=== PATIENT | female | born 1985 ===

== ENCOUNTER → 2017-12-09 | Outpatient (CLI) | payer OTHER | END | disposition home or self-care (01) | LOC: C.LABSPEC 15:17 | PROVIDERS: ATTEND Obstetrics & Gynecology | DX: Z34.01 Encounter for supervision of normal first pregnancy, first trimester (principal) ==

== ENCOUNTER → 2017-12-16 | Outpatient (CLI) | payer OTHER | END | disposition home or self-care (01) | LOC: C.PAPS 16:48 | PROVIDERS: ATTEND Obstetrics & Gynecology | DX: Z34.01 Encounter for supervision of normal first pregnancy, first trimester (principal) ==

== ENCOUNTER → 2017-12-16 | Outpatient (CLI) | payer OTHER | END | disposition home or self-care (01) | LOC: C.LABSPEC 16:13 | PROVIDERS: ATTEND Obstetrics & Gynecology | DX: Z34.01 Encounter for supervision of normal first pregnancy, first trimester (principal) ==

== ENCOUNTER 2018-07-29 11:10 | Inpatient (IN) ==
--- NOTE | 2018-07-29 13:15 | History & Physical Report ---
Date of Service July 29, 2018 Assessment & Plan (1) Term : -Fetus currently category 1 tracing. We will continue to monitor -Currently 1 cm dilated. Encourage pt to walk around, will cont monitor. Expect . -Vitals currently within normal limits. We will continue to monitor -A+, GBS-, Rubella Immune History of Present Illness Primary Care Provider: Dulce Henley PA-C DATE OF ADMISSION: 07/29/2018 BRIEF HISTORY: 33 y/o currently at 40 weeks 1 days gestational age with JON of 07/28/2018 by LMP consistent with first trimester ultrasound. At time of admission, the patient was having regular contractions, no vaginal bleeding or leakage of fluid, and reported normal movement. COURSE: The patient presented for care at approximately 8 weeks' gestational age. She has been normotensive throughout. She has had negative proteinuria, normal glucola testing x2, total weight gain for the is approximately 35 pounds. LABS: Blood type A positive, antibody screen negative, RPR nonreactive, rubella immune, hep B surface antigen negative, HIV negative, chlamydia negative, gonorrhea negative. Anatomy scan normal and complete. Hep group B strep negative. GBS negative. GYNECOLOGIC HISTORY: LMP 10/21/2017, age of menarche 13. The patient reports regular 28 day cycles with normal duration and quantity of menses. Denies any history of sexually transmitted infections or abnormal Paps. PAST MEDICAL HISTORY: Significant for Depression currently on Lexapro, otherwise unremarkable. PAST SURGICAL HISTORY: None. MEDICATIONS: 1. Lexapro 2. vitamin. 3. Vit. D ALLERGIES: NKDA SOCIAL HISTORY: The patient denies tobacco, alcohol or illicit drug use. FAMILY HISTORY: Breast Ca on both sides of family. Paternal Aunt- Depression, Bipolar. Paternal Cousin- Down Syndrome. Allergies Allergy/AdvReac Type Severity Reaction Status Date / Time No Known Allergies Allergy Verified 07/29/18 12:58 Home Medications Home Medications Medication Instructions Recorded Confirmed Type cholecalciferol (vitamin D3) 2,000 unit PO DAILY 06/01/18 07/29/18 History [Vitamin D3] 21-iron fu-folic acid 1 tab PO DAILY 06/01/18 07/29/18 History [ Complete] escitalopram oxalate [Lexapro] 20 mg PO DAILY 03/22/19 03/22/19 History Patient History Medical History Depression Surgical History No pertinent past surgical history Social History Preferred Language: Bulgarian marital status: Feels Safe at Home: Yes Safety Concerns: Feels Safe At This Time Smoking Status: Never smoker Hx Alcohol Use: Yes (1/2 glass of wine once a week) Hx Substance Use: No Review of Systems All systems reviewed & are unremarkable except as noted in HPI & below Physical Exam Vital Signs (Past 24 Hours): Last Vital Signs Temp 36.4 C L 07/29/18 11:31 Pulse 81 07/29/18 11:31 Resp 20 07/29/18 11:31 BP 111/76 07/29/18 11:31 Constitutional: WD/WN, vitals as above Eyes: Conjunctiva Normal ENMT: external ear and nose normal, oropharynx normal Respiratory: normal respiratory effort, lungs clear to auscultation Cardiovascular: RRR, no murmur, no edema Gastrointestinal (Abdomen): Soft, nontender, gravid FH-term Contractions palpated Vertex Skin: no rashes, warm and dry Psychiatric: A+Ox3, euthymic affect Genitourinary: 1 cm dilated, 75% effaced, -2 station (per Dr. Cristobal) Code Status & VTE Plan Code Status FULL Monitoring External Monitor Baseline 140 bpm, moderate variability, accelerations present, decelerations absent Tocodynamometer Contractions every ~3 min, lasting ~1 min Supervising Physician Co-Signing Physician Notes Resident Physician Supervision Note: I interviewed and examined the patient. Discussed with Dr. Lopez and agree with findings and plan as documented in the note. Any exceptions or clarifications are listed here: primip labor check, fetus category one. christiane q2-3min, will walk and recheck. Documented By: Jessica Cristobal MD, FACOG Resident Activity Tracking Resident Involvement: Resident Care Provided Care Provided: OB Delivery
[2018-07-29] MEDS ORDERED: OXYTOCIN 30 UNITS/500 ML BAG IV PRN (14:12)
[2018-07-29] MEDS ORDERED: LACTATED RINGER'S 1,000 ML IV PRN ×2 (14:12→16:55)
[2018-07-29 14:45] LABS: Hemoglobin 13.2 g/dL (12.0-16.0); Mean Corpuscular Volume 92.2 fL (80-100); Mean Platelet Volume 12.8 fL (7.4-10.4); Nucleated RBC # (auto) 0.02 K/uL (0-0); Nucleated RBC % (auto) 0.1 %; Platelet Count 145 K/uL (130-400); RDW Coefficient of Variation 14.9 % (11.5-14.5); RDW Standard Deviation 50.3 fL (36.4-46.3); Red Blood Count 4.23 M/uL (4.2-5.4); White Blood Count 15.63 K/uL (4.8-10.8)
[2018-07-29 14:56] LABS: Mean Corpuscular Hgb Conc 33.8 g/dL (32-36)
[2018-07-29] MEDS ORDERED: BUPIVACAINE 0.25% 30 ML VIAL ONE ×2 (15:56→20:35)
[2018-07-29] MEDS ORDERED: ePHEDrine sulfate 50 MG/ML AMP ONE (15:56)
[2018-07-29] MEDS ORDERED: fentaNYL 2MCG/ML ROPIV 1.25MG/ML 100 ML BAG EPI ONE (15:57)
[2018-07-29] MEDS ORDERED: fentaNYL citrate 100 MCG/2 ML VIAL ONE ×2 (15:57→20:36)
[2018-07-29] MEDS: LACTATED RINGER'S 1,000 ML IV SCH ×3 (16:03→21:31)
--- NOTE | 2018-07-29 16:52 | Anesthesiology Consultation ---
Date of Service July 29, 2018 Assessment & Plan (1) Encounter for pre-operative examination: Chart Review Chart Review: Acceptable Risk for Surgery and Patient NOT seen in Pre Admission Testing Consults Requested none ASA ASA2 Proposed Anesthesia Anesthesia Type: Labor Epidural Risk / Benefits Reviewed With: PT / POA / Parent / Guardian, Accepts Plan and Informed Consent Obtained History Height/Weight Height: 5 ft 6 in Weight: 89.358 kg Allergies Allergy/AdvReac Type Severity Reaction Status Date / Time No Known Allergies Allergy Verified 07/29/18 12:58 Medications Home Medications Medication Instructions Recorded Confirmed Last Taken cholecalciferol (vitamin D3) 2,000 unit PO DAILY 06/01/18 07/29/18 1 Day Ago [Vitamin D3] ~07/28/18 21-iron fu-folic acid 1 tab PO DAILY 06/01/18 07/29/18 1 Day Ago [ Complete] ~07/28/18 escitalopram oxalate [Lexapro] 20 mg PO DAILY 07/29/18 07/29/18 1 Day Ago ~07/28/18 Active Medications Generic Name Dose Route Start Last Admin Trade Name Freq PRN Reason Stop Dose Admin Lactated Ringer's 1,000 mls @ 999 mls/hr 07/29/18 14:12 07/29/18 14:51 Lr IV 08/28/18 14:11 999 mls/hr .Q1H1M PRN Administration (Pre-Anesthesia) Lactated Ringer's 1,000 mls @ 125 mls/hr 07/29/18 14:15 07/29/18 16:03 Lr IV 07/31/18 14:14 125 mls/hr .Q8H MANI Administration Past Medical History Medical History Depression Past Surgical History Surgical History No pertinent past surgical history Social History Smoking Status: Never smoker Hx Alcohol Use: Yes (1/2 glass of wine once a week) Alcohol type: wine alcohol intake frequency: a few times a month Hx Substance Use: No Physical Exam Vital Signs Last Vital Signs Temp 36.9 C 07/29/18 15:51 Pulse 95 H 07/29/18 16:47 Resp 20 07/29/18 15:51 BP 102/59 L 07/29/18 16:47 Pulse Ox 94 07/29/18 16:47 Testing Laboratory Results 07/29/18 14:34
[2018-07-29] MEDS ORDERED: NALBUPHINE HCL INJ 10 MG/ML AMP IV PRN (16:55)
[2018-07-29] MEDS ORDERED: DiphenhydrAMINE HCL 50 MG/ML VIAL IV PRN (16:55)
[2018-07-29] MEDS ORDERED: NALOXONE HCL 0.4 MG/1 ML VIAL/CARP IV PRN (16:55)
[2018-07-29] MEDS ORDERED: ePHEDrine sulfate 50 MG/ML AMP IV PRN (16:55)
[2018-07-29] MEDS ORDERED: ONDANSETRON INJ 2 MG/ML 2 ML VIAL IV PRN (16:55)
[2018-07-29] MEDS ORDERED: NALOXONE HCL 1 MG in SODIUM CHLORIDE 0.9% 1000ML 1,000 ML IV PRN (16:55)
--- NOTE | 2018-07-29 17:07 | Labor Progress Brief Note ---
Date of Service July 29, 2018 Subjective Patient more comfortable after epidural. Assessment & Plan (1) Term : Plan expectant management after epidural. pitocin if indicated. fetus category one. anticipate . Physical Exam Vital Signs (Past 24 Hours): Last Vital Signs Temp 36.9 C 07/29/18 15:51 Pulse 81 07/29/18 17:01 Resp 20 07/29/18 15:51 BP 93/53 L 07/29/18 16:50 Pulse Ox 100 07/29/18 17:01 Constitutional: WD/WN, vitals as above Genitourinary: cx--/-2 arom--thin mec toco--q2-4min efm--130s wtih mod variability, accels to 160s, no decels
--- NOTE | 2018-07-29 19:33 | Labor Progress Brief Note ---
Date of Service July 29, 2018 Subjective Some pressure Assessment & Plan (1) Term : fetus category one. making good progress. continue current management. anticipate . Physical Exam Vital Signs (Past 24 Hours): Last Vital Signs Temp 37.0 C 07/29/18 19:02 Pulse 78 07/29/18 19:26 Resp 18 07/29/18 19:02 BP 114/71 07/29/18 19:22 Pulse Ox 100 07/29/18 19:26 Constitutional: WD/WN, vitals as above Genitourinary: cx--5/100/-2 toco--q1-3min efm--135 with mod variability, accels to 160s, no decels
--- NOTE | 2018-07-29 21:38 | Labor Progress Brief Note ---
Date of Service July 29, 2018 Subjective rebolused and comfortable Assessment & Plan (1) Term : Making good progress. Fetus category 2 but overall reassuring. Continue current management. Anticipate . Physical Exam Vital Signs (Past 24 Hours): Last Vital Signs Temp 37.1 C 07/29/18 20:51 Pulse 74 07/29/18 21:31 Resp 18 07/29/18 21:01 BP 107/61 07/29/18 21:22 Pulse Ox 100 07/29/18 21:31 Constitutional: WD/WN, vitals as above Genitourinary: cx--8-9/100/-2 to -1 toco--q1-3min efm--150s with min to mod variability, small accels, no decels, +scalp stim with exam
[2018-07-29] MEDS: fentaNYL 2MCG/ML ROPIV 1.25MG/ML 100 ML BAG EPI PRN (23:03)
--- NOTE | 2018-07-29 23:17 | Labor Progress Brief Note ---
Date of Service July 29, 2018 Subjective getting uncomfortable again Assessment & Plan (1) Term : Begin second stage. Fetus category 2. Anticipate at this time. Physical Exam 2 Vital Signs (Past 24 Hours): Last Vital Signs Temp 36.9 C 07/29/18 21:56 Pulse 79 07/29/18 23:11 Resp 18 07/29/18 22:31 BP 113/56 L 07/29/18 23:07 Pulse Ox 99 07/29/18 23:11 Constitutional: WD/WN, vitals as above Genitourinary: cx--c/c/0 toco--q2-3min efm--140 with mod variability, accels to 170s, no decels
--- NOTE | 2018-07-30 02:49 | Labor Progress Brief Note ---
Date of Service July 30, 2018 Subjective Pushing, not the greatest effort Assessment & Plan (1) Term : NOt pushing well. Many attempts at coaching. I don't really feel she's moved it much in the hour she has jeff pushing. Will trial knee /chest again in a bit as nursing felt she pushed a little better in that position. fetus very reassuring. I feel like she probably has the room but is just not pushing well. head not on pelvic floor at this point. Physical Exam Vital Signs (Past 24 Hours): Last Vital Signs Temp 37.2 C 07/30/18 02:13 Pulse 106 H 07/30/18 02:43 Resp 18 07/30/18 02:31 BP 136/79 07/30/18 02:38 Pulse Ox 100 07/30/18 02:43 Constitutional: WD/WN, vitals as above Genitourinary: cx--c/c/0 toco--q2min efm--150s wtih mod variability, accels present, variables with contractions
[2018-07-30] MEDS ORDERED: fentaNYL citrate 100 MCG/2 ML VIAL ONE ×3 (03:05→09:18)
--- NOTE | 2018-07-30 03:18 | Labor Progress Brief Note ---
Date of Service July 30, 2018 Subjective getting more painful Assessment & Plan (1) Term : Plan to bolus epidural and try to get her really comfortable. I got her into knee chest and made no difference in her pushing. Hopefully after getting more/really comfortable, may push better?? Will give it a try. Has been actively pushing for about 1.5 hours. No change in station after laboring down for an hour. Baby still looking very good and no maternal temp/ s/s of chorio. I have told the patient that she really has to push harder, as I can't really feel any downward pressure on the vertex while she is pushing. I feel like there is room for this baby posteriorly to come around the symphysis. But I did tell her that the only option is to push it out or for me to section her. She was not really excited about the idea of c/s. Will get comfortable, get a little rest , and try again. Physical Exam Vital Signs (Past 24 Hours): Last Vital Signs Temp 37.2 C 07/30/18 02:13 Pulse 95 H 07/30/18 03:08 Resp 18 07/30/18 02:31 BP 129/77 07/30/18 03:08 Pulse Ox 99 07/30/18 02:53 Constitutional: WD/WN, vitals as above Genitourinary: c/c/0 toco--q2 efm--150s with mod vairabilit, accels to 170s, variables with some contractions.
[2018-07-30] MEDS ORDERED: LACTATED RINGER'S 1,000 ML IV PRN (03:51)
[2018-07-30] MEDS ORDERED: OXYTOCIN 30 UNITS/500 ML BAG IV PRN (03:51)
[2018-07-30] MEDS ORDERED: BUPIVACAINE 0.25% 30 ML VIAL ONE (04:17)
[2018-07-30] MEDS ORDERED: ePHEDrine sulfate 50 MG/ML AMP ONE (04:18)
[2018-07-30] MEDS ORDERED: fentaNYL 2MCG/ML ROPIV 1.25MG/ML 100 ML BAG EPI ONE (04:18)
--- NOTE | 2018-07-30 04:22 | Communication Note ---
Date of Service: July 30, 2018 Patient did not get any relief from her bolus like she did previously. anesthesia back up to likely replace epidural. Ctx spaced so pitocin added. Discussion about how that's about all I have in my power to do and she has to push this baby out. Fetus category one. Once stable from replaced epidural, will begin pushing again.
[2018-07-30] MEDS: fentaNYL 2MCG/ML ROPIV 1.25MG/ML 100 ML BAG EPI PRN (04:51)
[2018-07-30] MEDS: LACTATED RINGER'S 1,000 ML IV SCH (05:32)
[2018-07-30] MEDS ORDERED: Nursing to Pharmacy Communication ONE (06:27)
[2018-07-30] MEDS ORDERED: CITRIC ACID/SODIUM CITRATE 15 ML UDC ONE (08:41)
--- NOTE | 2018-07-30 08:48 | Obstetrical Progress Note ---
Date of Service July 30, 2018 Call sign over at 830am Prolonged full dilatation with pushing. Patient is exhausted and in pain. +1 station with significant caput. Minimal movement with patient pushing Agree with Dr. Cristobal that C/S recommended. Discussed increased risks of infection/complications with prolonged labor/full diltation with subsequent C/S Physical Exam Vital Signs (Past 24 Hours): Last Vital Signs Temp 36.7 C 07/30/18 06:59 Pulse 102 H 07/30/18 08:43 Resp 22 07/30/18 06:59 BP 148/89 H 07/30/18 08:40 Pulse Ox 99 07/30/18 08:43
--- NOTE | 2018-07-30 08:51 | Communication Note ---
Date of Service: July 30, 2018 Once patient was comfortable she really pushed well with much better effort. She did move the baby down but unfortunately over the last hour of her current three hour push, she has not really pushed the baby down any farther. There is significant caput that we can see with separation of the labia but true vertex is not underneath the symphysis. However, I do not think that the station is >+1. She is now incredibly uncomfortable and unable to push. I am uncomfortable with placing a vacuum for several reasons--large caput, if successful-- getting a shoulder dystocia because of a narrow pelvis and a high risk of failure resulting in a stat c/s. I had been having this conversation with the patient and her over the last hour seeing no significant increase in station. I had Dr. Mckee examine the patient and he agrees with my assessment and evaluation. They are agreeable with proceeding. dr. Mckee will perform the procedure and I will assist.
[2018-07-30] MEDS ORDERED: CEFAZOLIN 2000MG 2,000 MG/15 ML SYR IV SCH (09:00)
[2018-07-30] MEDS ORDERED: CITRIC ACID/SODIUM CITRATE 15 ML UDC PO SCH (09:00)
[2018-07-30] MEDS ORDERED: LACTATED RINGER'S 1,000 ML IV SCH ×3 (09:00→10:35)
[2018-07-30] MEDS ORDERED: OXYTOCIN 10 UNITS/ML VIAL ONE (09:38)
[2018-07-30] MEDS ORDERED: SUCCINYLCHOLINE CHLORIDE 20 MG/ML 10 ML VIAL ONE (09:38)
[2018-07-30] MEDS ORDERED: ONDANSETRON INJ 2 MG/ML 2 ML VIAL ONE (09:38)
[2018-07-30] MEDS ORDERED: PHENYLEPHRINE 100MCG/ML 5ML SYR ONE (09:38)
[2018-07-30] MEDS ORDERED: PROPOFOL IV EMULSION 10 MG/ML 20 ML VIAL IV ONE (09:38)
--- NOTE | 2018-07-30 09:59 | Operative Report ---
Post Operative Report Pre & Post Diagnosis Operation Date: 07/30/18 08:55 Pre-Op Diagnosis: intrauterine at 40.3 failure to descend Procedure Operation Date: 07/30/18 08:55 Actual Procedures p Section in LD - Jair Mckee MD, FACOG Surgeon Jair Mckee MD, FACOG Service Transformer Repair Supervisor Dr. Cristobal Estimated Blood Loss 800 Findings Consistent with Post-Op Diagnosis Specimens Cord gases and blood Description of Procedure Patient was given a general anesthetic had a Arredondo catheter in already. She was in supine position with a leftward tilt. IV antibiotics have been given preoperatively timeout performed Pfannenstiel incision made with scalpel dissecting down through subcutaneous fat through the fascia in the midline curved Silva was used to dissect the fascia laterally and then away from the rectus muscle superiorly and inferiorly rectus muscles were split peritoneal cavity entered in the superior location. Opening enlarged to allow exposure Bladder retractor placed Metzenbaums used to dissect away the bladder flap bladder retractor repositioned scalpel used to make a low transverse incision on the uterus and she was done bluntly with a hemostat opening enlarged with the certified forklift operator's fingers. Thin meconium noticed baby was in vertex position using my right hand was able to elevate the head out of the pelvis and then pressure on the abdomen resulted in delivery of the fetus without excessive force mouth and then nares suctioned gentle traction and baby was delivered handed to pediatrics Placenta removed uterus exteriorized IV Pitocin given. We ensured all placenta was removed tone was somewhat floppy so we did give some Hemabate injection into the uterus Uterus closed in 2 layers first layer running Monocryl lock second layer Monocryl nonlocked hemostasis excellent at this stage there were no extensions Irrigation of the cul-de-sac and bladder flap regions was performed uterus placed back in the peritoneal cavity hemostasis was excellent Fascia closed with 0 Vicryl simultaneous fat irrigated and closed with 3-0 Vicryl 4-0 subcuticular Monocryl closure Steri-Strips applied sponge and instrument counts were correct should be noted the patient's urine was unchanged during the position it was minimally blood-tinged prior to the procedure and after I attest to the content of the Intraoperative Record and any orders documented therein. Any exceptions are noted below.
--- NOTE | 2018-07-30 10:15 | Anesthesia Procedure Note ---
Date of Service July 30, 2018 Anesthesia Post Epidural Note Vital Signs Vital Signs: Temp Pulse Resp BP Pulse Ox 36.7 C 99 H 22 100/51 L 100 07/30/18 06:59 07/30/18 10:13 07/30/18 06:59 07/30/18 10:08 07/30/18 10:13 Pain Intensity Abdomen: Pain Intensity: 8 Notes Mental Status: alert / awake / arousable Patient Amnestic to Procedure: Yes Nausea / Vomiting: adequately controlled Pain: adequately controlled Airway Patency, RR, SpO2: stable & adequate BP & HR: stable & adequate Hydration State: stable & adequate Neuraxial Anesthesia: was administered and sensory block is resolving Anesthetic Complications: no major complications apparent and Pt Satisfied with anesthetic care Epidural: Removed without complications and With tip intact
[2018-07-30] MEDS ORDERED: ACETAMINOPHEN 1000 MG/100 ML IV IV ONE (10:16)
[2018-07-30] MEDS ORDERED: ATROPINE SULFATE 0.1 MG/ML 10ML SYR IV PRN (10:16)
[2018-07-30] MEDS ORDERED: PROMETHAZINE HCL 12.5 MG in SODIUM CHLORIDE 0.9% 50 ML IV PRN (10:16)
[2018-07-30] MEDS ORDERED: KETOROLAC 30 MG/ML VIAL IV PRN ×2 (10:16→10:35)
[2018-07-30] MEDS ORDERED: ACETAMINOPHEN 1,000 MG/100 ML VIAL IV ONE (10:16)
[2018-07-30] MEDS ORDERED: fentaNYL citrate 100 MCG/2 ML VIAL IV PRN (10:16)
[2018-07-30] MEDS ORDERED: ePHEDrine sulfate 50 MG/ML AMP IV PRN (10:16)
[2018-07-30] MEDS ORDERED: HYDROmorphone INJ 1 MG/ML SYRINGE IV PRN (10:16)
[2018-07-30] MEDS ORDERED: ONDANSETRON INJ 2 MG/ML 2 ML VIAL IV PRN (10:16)
--- NOTE | 2018-07-30 10:16 | Anesthesiology Progress Note ---
Date of Service July 30, 2018 Anesthesia Post Procedure Vital Signs Vital Signs: Temp Pulse Resp BP Pulse Ox 07/30/18 10:13 99 H 100 07/30/18 10:08 105 H 100/51 L 100 07/30/18 09:09 102 H 100 07/30/18 09:07 105 H 129/55 L 07/30/18 09:04 106 H 141/67 H 07/30/18 09:03 107 H 99 07/30/18 08:58 102 H 97 07/30/18 08:55 99 H 153/79 H 07/30/18 08:53 103 H 99 07/30/18 08:48 96 H 100 07/30/18 08:43 102 H 99 07/30/18 08:40 110 H 148/89 H 07/30/18 08:38 98 H 98 07/30/18 08:33 106 H 99 07/30/18 08:28 101 H 99 07/30/18 08:23 126 H 99 07/30/18 08:18 123 H 100 07/30/18 08:13 97 H 99 07/30/18 08:10 95 H 141/68 H 07/30/18 08:08 104 H 98 07/30/18 08:03 102 H 97 07/30/18 07:58 113 H 97 07/30/18 07:55 117 H 99/55 L 07/30/18 07:53 95 H 97 07/30/18 07:48 89 95 07/30/18 07:43 109 H 96 07/30/18 07:40 93 H 122/58 L 07/30/18 07:38 129 H 97 07/30/18 07:34 101 H 164/91 H 07/30/18 07:33 96 H 96 07/30/18 07:28 90 97 07/30/18 07:25 111 H 170/121 H 07/30/18 07:23 106 H 97 07/30/18 07:18 91 H 97 07/30/18 07:13 100 H 94 07/30/18 07:11 96 H 127/58 L 07/30/18 07:08 138 H 96 07/30/18 07:03 96 H 96 07/30/18 07:02 99 H 86 L 07/30/18 06:59 36.7 C 22 07/30/18 06:58 94 H 96 07/30/18 06:56 95 H 82 L 07/30/18 06:55 87 114/57 L 07/30/18 06:53 101 H 97 07/30/18 06:50 95 H 83 L 07/30/18 06:48 84 94 07/30/18 06:43 89 97 07/30/18 06:42 97 H 79 L 07/30/18 06:39 86 107/59 L 07/30/18 06:38 82 96 07/30/18 06:35 106 H 89 L 07/30/18 06:33 85 97 07/30/18 06:28 106 H 96 07/30/18 06:25 88 113/60 07/30/18 06:23 84 95 07/30/18 06:18 112 H 87 L 07/30/18 06:13 123 H 98 07/30/18 06:10 93 H 111/61 07/30/18 06:08 101 H 79 L 07/30/18 06:03 107 H 96 07/30/18 06:02 104 H 82 L 07/30/18 05:58 85 97 07/30/18 05:53 84 96 07/30/18 05:52 90 115/56 L 07/30/18 05:49 36.7 C 07/30/18 05:48 114 H 86 L 07/30/18 05:45 99 H 83 L 07/30/18 05:43 91 H 99 07/30/18 05:42 115 H 153/99 H 07/30/18 05:38 85 96 07/30/18 05:33 85 97 07/30/18 05:31 18 07/30/18 05:28 93 H 100 07/30/18 05:25 93 H 112/59 L 07/30/18 05:23 125 H 98 07/30/18 05:18 107 H 98 07/30/18 05:15 18 07/30/18 05:13 84 96 07/30/18 05:08 92 H 96 07/30/18 05:07 88 115/61 07/30/18 05:03 92 H 96 07/30/18 05:02 93 H 120/64 07/30/18 05:00 18 07/30/18 04:59 93 H 108/60 07/30/18 04:58 97 H 95 07/30/18 04:55 18 07/30/18 04:54 37.2 C 18 07/30/18 04:53 99 H 107/56 L 97 07/30/18 04:51 95 H 117/66 07/30/18 04:49 104 H 118/58 L 07/30/18 04:48 104 H 96 07/30/18 04:46 18 07/30/18 04:43 93 H 99 07/30/18 04:38 107 H 98 07/30/18 04:36 108 H 115/63 07/30/18 04:33 107 H 99 07/30/18 04:28 116 H 100 07/30/18 04:23 111 H 97 07/30/18 04:18 87 97 07/30/18 04:13 88 98 07/30/18 04:08 95 H 98 07/30/18 04:06 93 H 124/62 07/30/18 04:03 102 H 97 07/30/18 03:58 88 95 07/30/18 03:53 84 96 07/30/18 03:51 78 110/54 L 07/30/18 03:48 82 94 07/30/18 03:43 84 95 07/30/18 03:38 91 H 98 07/30/18 03:37 85 114/60 07/30/18 03:33 87 95 07/30/18 03:28 92 H 95 07/30/18 03:23 95 H 96 07/30/18 03:21 107 H 120/69 07/30/18 03:18 99 H 98 07/30/18 03:13 92 H 98 07/30/18 03:08 99 H 129/77 97 07/30/18 02:53 114 H 99 07/30/18 02:52 100 H 130/60 07/30/18 02:48 109 H 86 L 07/30/18 02:43 106 H 100 07/30/18 02:39 108 H 82 L 07/30/18 02:38 95 H 136/79 98 07/30/18 02:33 94 H 100 07/30/18 02:31 18 07/30/18 02:28 89 99 07/30/18 02:23 90 121/76 100 07/30/18 02:18 97 H 100 07/30/18 02:13 37.2 C 93 H 100 07/30/18 02:08 90 99 07/30/18 02:07 95 H 146/64 H 07/30/18 02:03 92 H 100 07/30/18 02:01 18 07/30/18 01:58 91 H 99 07/30/18 01:51 101 H 100 07/30/18 01:47 92 H 86 L 07/30/18 01:46 98 H 100 07/30/18 01:42 95 H 81 L 07/30/18 01:41 91 H 94 07/30/18 01:36 100 H 99 07/30/18 01:31 99 H 18 100 07/30/18 01:26 87 100 07/30/18 01:21 85 98 07/30/18 01:16 91 H 100 07/30/18 01:14 87 83 L 07/30/18 01:11 98 H 100 07/30/18 01:09 89 87 L 07/30/18 01:07 88 125/57 L 07/30/18 01:06 88 100 07/30/18 01:01 103 H 18 99 07/30/18 00:56 89 98 07/30/18 00:52 90 117/58 L 07/30/18 00:51 88 98 07/30/18 00:46 86 98 07/30/18 00:41 94 H 100 07/30/18 00:37 97 H 123/73 07/30/18 00:36 100 H 99 07/30/18 00:31 90 99 07/30/18 00:30 18 07/30/18 00:26 97 H 98 07/30/18 00:21 88 131/64 99 07/30/18 00:16 93 H 100 07/30/18 00:11 97 H 99 07/30/18 00:06 87 119/61 100 07/30/18 00:01 37.0 C 84 18 100 07/29/18 23:56 88 99 07/29/18 23:52 85 118/59 L 07/29/18 23:51 85 100 07/29/18 23:46 85 99 07/29/18 23:41 81 97 07/29/18 23:37 87 123/56 L 07/29/18 23:36 93 H 100 07/29/18 23:31 99 H 18 97 07/29/18 23:26 81 99 07/29/18 23:22 86 129/68 07/29/18 23:21 86 99 07/29/18 23:16 87 97 07/29/18 23:11 79 99 07/29/18 23:07 75 113/56 L 07/29/18 23:06 73 99 07/29/18 23:01 76 98 07/29/18 22:56 81 98 07/29/18 22:51 81 107/57 L 96 07/29/18 22:46 78 98 07/29/18 22:41 84 98 07/29/18 22:37 82 114/56 L 07/29/18 22:36 84 96 07/29/18 22:31 82 18 97 07/29/18 22:26 80 97 07/29/18 22:22 82 116/65 07/29/18 22:21 84 97 07/29/18 22:16 80 97 07/29/18 22:11 79 98 07/29/18 22:07 74 108/55 L 07/29/18 22:06 77 98 07/29/18 22:01 80 18 98 07/29/18 21:56 36.9 C 81 18 97 07/29/18 21:51 78 107/59 L 98 07/29/18 21:46 76 100 07/29/18 21:41 80 100 07/29/18 21:37 74 110/55 L 07/29/18 21:36 81 100 07/29/18 21:31 74 100 07/29/18 21:26 76 100 07/29/18 21:22 81 107/61 07/29/18 21:21 80 96 07/29/18 21:16 81 98 07/29/18 21:11 81 99 07/29/18 21:06 82 108/61 99 07/29/18 21:01 77 18 100 07/29/18 20:56 85 99 07/29/18 20:51 37.1 C 79 18 113/68 100 07/29/18 20:46 86 100 07/29/18 20:41 79 100 07/29/18 20:37 75 113/56 L 07/29/18 20:36 81 89/55 L 100 07/29/18 20:31 88 99 07/29/18 20:26 102 H 100 03/22/19 20:22 80 105/56 L 07/29/18 20:21 81 100 07/29/18 20:16 83 100 07/29/18 20:11 78 100 07/29/18 20:07 75 106/52 L 07/29/18 20:06 83 100 07/29/18 20:01 82 18 100 07/29/18 19:56 80 100 07/29/18 19:51 81 102/56 L 99 07/29/18 19:46 75 99 07/29/18 19:41 81 100 07/29/18 19:36 75 102/54 L 100 07/29/18 19:31 80 99 07/29/18 19:26 78 100 07/29/18 19:22 83 114/71 07/29/18 19:21 84 100 07/29/18 19:16 86 99 07/29/18 19:11 87 100 07/29/18 19:07 79 118/69 07/29/18 19:06 85 99 07/29/18 19:02 37.0 C 18 07/29/18 19:01 84 98 07/29/18 18:56 84 99 07/29/18 18:51 87 122/69 98 07/29/18 18:46 84 98 07/29/18 18:41 92 H 99 07/29/18 18:37 90 119/68 07/29/18 18:36 86 99 07/29/18 18:31 78 98 07/29/18 18:26 88 98 07/29/18 18:21 87 112/66 98 07/29/18 18:16 76 98 07/29/18 18:11 37.2 C 84 18 99 07/29/18 18:06 81 111/67 97 07/29/18 18:01 85 97 07/29/18 17:56 92 H 98 07/29/18 17:52 85 107/64 07/29/18 17:51 82 97 07/29/18 17:46 80 97 07/29/18 17:41 82 98 07/29/18 17:36 89 106/59 L 99 07/29/18 17:31 93 H 99 07/29/18 17:26 85 100 07/29/18 17:22 85 108/61 07/29/18 17:21 82 99 0322/19 17:16 96 H 98 07/29/18 17:11 90 99 07/29/18 17:07 86 104/58 L 07/29/18 17:06 88 99 07/29/18 17:01 81 100 07/29/18 16:56 96 H 100 07/29/18 16:51 92 H 100 07/29/18 16:50 100 H 93/53 L 07/29/18 16:47 95 H 102/59 L 94 07/29/18 16:46 95 H 96 07/29/18 16:44 116 H 99/57 L 07/29/18 16:41 111 H 96/56 L 100 07/29/18 16:38 113 H 104/61 07/29/18 16:36 98 H 105/63 100 07/29/18 16:31 92 H 100 07/29/18 16:26 89 99 07/29/18 16:21 92 H 100 07/29/18 16:16 94 H 100 07/29/18 16:11 87 99 07/29/18 16:08 91 H 126/79 07/29/18 16:06 99 H 99 07/29/18 15:52 81 132/75 07/29/18 15:51 36.9 C 20 07/29/18 11:31 36.4 C L 81 20 111/76 Pain Intensity Abdomen: Pain Intensity: 8 Notes Mental Status: alert / awake / arousable Patient Amnestic to Procedure: Yes Nausea / Vomiting: adequately controlled Pain: adequately controlled Airway Patency, RR, SpO2: stable & adequate BP & HR: stable & adequate Hydration State: stable & adequate Neuraxial Anesthesia: sensory block resolved and see Notes below (Bolused e pidural but no effect. Went to geta) Anesthetic Complications: no major complications apparent and Pt Satisfied with anesthetic care
[2018-07-30 10:24] LABS: Base Excess Cord Arterial Bld -0.8 mEq/L (-9-1.8); CO2 Cord Arterial Blood 54 mmHg (39.1-73.5); HCO3 Cord Arterial Blood 27 mmol/L (19.7-28.5); pH Cord Arterial Blood 7.31 (7.1-7.38)
[2018-07-30 10:27] LABS: Base Excess Cord Venous Blood -1.9 mEq/L (-7.7-1.9); Cord Venous Blood HCO3 24 mmol/L (18.4-26.8); Cord Venous Blood PCO2 46 mmHg (30.4-57.2); Cord Venous Blood PO2 25 mmHg (14.1-43.3); Cord Venous Blood pH 7.34 (7.20-7.44)
[2018-07-30 10:28] LABS: O2 Saturation Cord Venous Bld < 60.0 % (<68)
[2018-07-30] MEDS ORDERED: MEPERIDINE HCL 50 MG/ML CARP IV PRN (10:35)
[2018-07-30] MEDS ORDERED: SENNA 8.6 MG TAB PO PRN (10:35)
[2018-07-30] MEDS ORDERED: PROMETHAZINE HCL 25 MG in SODIUM CHLORIDE 0.9% 50 ML IV PRN (10:35)
[2018-07-30] MEDS ORDERED: DiphenhydrAMINE HCL 50 MG/ML VIAL IV PRN (10:35)
[2018-07-30] MEDS ORDERED: BENZOCAINE 20% AER SPR 82.5 GM CAN EXT PRN (10:35)
[2018-07-30] MEDS ORDERED: OXYCODONE/ACETAMINOPHEN 5mg/325mg TAB PO PRN (10:35)
[2018-07-30] MEDS ORDERED: MAGNESIUM HYDROXIDE SUSP 30 ML UDC PO PRN (10:35)
[2018-07-30] MEDS ORDERED: HYDROCORTISONE ACETATE 25 MG SUPP PR PRN (10:35)
[2018-07-30] MEDS ORDERED: SUPERCREAM 0.870% 15 GM JAR EXT PRN (10:35)
[2018-07-30] MEDS ORDERED: DIPHTHERIA/TETANUS/PERTUSSIS 0.5 ML SYR/VIAL IM ONE (10:35)
[2018-07-30] MEDS ORDERED: NALOXONE HCL 0.4 MG/1 ML VIAL/CARP IV PRN (10:41)
[2018-07-30] MEDS ORDERED: SODIUM CHLORIDE 0.9% 1000ML 1,000 ML IV SCH (10:45)
[2018-07-30] MEDS: MoRPHine SULFATE PCA 50 MG/50ML IV PRN ×2 (10:59→19:12)
[2018-07-30] MEDS: OXYTOCIN 20 UNITS in LACTATED RINGER'S 1,000 ML IV SCH ×2 (11:03→19:44)
[2018-07-30] MEDS ORDERED: CARBOPROST TROMETHAMINE 250 MCG/ML AMPUL IM ONE (11:12)
[2018-07-30] MEDS: SIMETHICONE 80 MG CHEW PO SCH ×2 (14:17→21:17)
[2018-07-30] MEDS: DOCUSATE SODIUM 100 MG CAP PO SCH (21:17)
[2018-07-31] MEDS: KETOROLAC 30 MG/ML VIAL IV PRN ×2 (00:30→07:42)
[2018-07-31] MEDS ORDERED: CITRIC ACID/SODIUM CITRATE 15 ML UDC PO SCH (06:00)
[2018-07-31] MEDS: MoRPHine SULFATE PCA 50 MG/50ML IV PRN ×2 (07:10)
[2018-07-31 08:10] LABS: Basophils # (auto) 0.01 K/uL (0-0.2); Basophils % (auto) 0.1 %; Eosinophils # (auto) 0.03 K/uL (0-0.5); Eosinophils % (auto) 0.2 %; Hemoglobin 9.4 g/dL (12.0-16.0); Immature Granulocytes # (auto) 0.03 K/uL (0.00-0.02); Immature Granulocytes % (auto) 0.2 %; Lymphocytes # (auto) 1.45 K/uL (1.2-3.4); Lymphocytes % (auto) 11.3 %; Mean Corpuscular Hgb Conc 32.4 g/dL (32-36); Mean Corpuscular Volume 92.4 fL (80-100); Mean Platelet Volume 12.2 fL (7.4-10.4); Monocytes # (auto) 0.86 K/uL (0.11-0.59); Monocytes % (auto) 6.7 %; Neutrophils # (auto) 10.43 K/uL (1.4-6.5); Neutrophils % (auto) 81.5 %; Platelet Count 103 K/uL (130-400); Platelet Estimate Decreased (Normal); RDW Coefficient of Variation 15.4 % (11.5-14.5); Red Blood Count 3.14 M/uL (4.2-5.4); White Blood Count 12.81 K/uL (4.8-10.8)
[2018-07-31] MEDS: FERROUS SULFATE 325 MG TAB PO SCH (08:20)
[2018-07-31] MEDS: ESCITALOPRAM OXALATE 20 MG TAB PO SCH (08:20)
[2018-07-31] MEDS: DOCUSATE SODIUM 100 MG CAP PO SCH ×2 (08:20→20:53)
[2018-07-31] MEDS: PRENATAL VITAMIN 1 TAB PO SCH (08:20)
[2018-07-31] MEDS ORDERED: DC PCA 1 EA DEVI ONE (08:35)
[2018-07-31] MEDS ORDERED: KETOROLAC 30 MG/ML VIAL IV PRN (08:35)
[2018-07-31] MEDS ORDERED: OXYCODONE/ACETAMINOPHEN 5mg/325mg TAB PO PRN (08:35)
[2018-07-31] MEDS ORDERED: IBUPROFEN 600 MG TAB PO PRN (08:35)
--- NOTE | 2018-07-31 08:38 | Obstetrical Progress Note ---
Date of Service July 31, 2018 Postop day #1 from patient is well she is getting up out of bed but not walking yet she has no extremity pain her bleeding is minimal she does have some abdominal distention but otherwise is well Assessment & Plan (1) delivery delivered: Encourage ambulation pain control catheter removed and [employer] will be removed today Physical Exam Vital Signs (Past 24 Hours) Last Vital Signs Temp 36.4 C L 07/31/18 04:40 Pulse 81 07/31/18 04:40 Resp 20 07/31/18 04:40 BP 113/68 07/31/18 04:40 Pulse Ox 98 07/31/18 04:40 Vital signs are stable she is afebrile abdomen is soft and nontender she does have bowel sounds incision is clean dry and intact she is moderately distended extremity exam negative
[2018-07-31] MEDS: SIMETHICONE 80 MG CHEW PO SCH ×4 (10:12→20:54)
[2018-07-31] MEDS: IBUPROFEN 600 MG TAB PO PRN ×3 (11:31→21:05)
[2018-07-31] MEDS: OXYCODONE/ACETAMINOPHEN 5mg/325mg TAB PO PRN ×3 (11:32→21:06)
--- NOTE | 2018-07-31 14:16 | Anesthesiology Progress Note ---
Date of Service July 31, 2018 Anesthesia Post Procedure Vital Signs Vital Signs: Temp Pulse Pulse Resp BP Pulse Ox 07/31/18 08:00 36.6 C 87 22 121/72 07/31/18 04:40 36.4 C L 81 20 113/68 98 07/31/18 00:05 37.2 C 89 18 100/64 97 07/30/18 19:50 37.0 C 80 20 111/72 97 07/30/18 18:30 36.8 C 20 131/74 Pain Intensity Abdomen: Pain Intensity: 3 Notes Mental Status: alert / awake / arousable and participated in evaluation Patient Amnestic to Procedure: Yes Nausea / Vomiting: adequately controlled Pain: adequately controlled Airway Patency, RR, SpO2: stable & adequate BP & HR: stable & adequate Hydration State: stable & adequate Anesthetic Complications: no major complications apparent and Pt Satisfied with anesthetic care
[2018-07-31] MEDS ORDERED: BISACODYL 5 MG TABEC PO SCH (20:00)
[2018-08-01] MEDS: IBUPROFEN 600 MG TAB PO PRN ×4 (02:02→20:03)
[2018-08-01] MEDS: OXYCODONE/ACETAMINOPHEN 5mg/325mg TAB PO PRN ×4 (02:03→20:03)
[2018-08-01 07:13] LABS: Hematocrit (blood only) 28.7 % (37-47); Hemoglobin 9.6 g/dL (12.0-16.0)
--- NOTE | 2018-08-01 07:44 | Obstetrical Progress Note ---
Date of Service August 01, 2018 Postop day #2 section the patient is well she still is somewhat distended but she is passing flatus she is ambulate well her pain is well controlled she has no extremity pain Assessment & Plan (1) delivery delivered: Postop day #2 continue to work on ambulation plan discharge tomorrow Physical Exam Vital Signs (Past 24 Hours) Last Vital Signs Temp 36.4 C L 08/01/18 00:20 Pulse 79 08/01/18 00:20 Resp 18 08/01/18 00:20 BP 101/60 08/01/18 00:20 Pulse Ox 97 08/01/18 00:20 Uterus is firm nontender incision clean dry and intact extremity exam negative
[2018-08-01] MEDS: PRENATAL VITAMIN 1 TAB PO SCH (08:28)
[2018-08-01] MEDS: ESCITALOPRAM OXALATE 20 MG TAB PO SCH (08:28)
[2018-08-01] MEDS: DOCUSATE SODIUM 100 MG CAP PO SCH ×2 (08:28→20:02)
[2018-08-01] MEDS: FERROUS SULFATE 325 MG TAB PO SCH (08:28)
[2018-08-01] MEDS: SIMETHICONE 80 MG CHEW PO SCH ×3 (09:35→20:02)
[2018-08-01] MEDS ORDERED: BISACODYL 10 MG SUPP PR PRN (09:59)
--- NOTE | 2018-08-02 07:35 | Obstetrical Progress Note ---
Date of Service August 02, 2018 Assessment & Plan (1) delivery delivered: doing well, ready for discharge. f/u 6wks pp check. discussed colace for constipation. instructions reviewed. Subjective Ambulation: ambulating normally Voiding: no voiding problems Passing Gas:: Yes Diet Tolerance:: regular diet Lochia:: Small Feeding Type:: breast feeding no pain control issues. Physical Exam Vital Signs (Past 24 Hours) Last Vital Signs Temp 36.5 C 08/01/18 23:30 Pulse 63 08/01/18 23:30 Resp 18 08/01/18 23:30 BP 107/63 08/01/18 23:30 Pulse Ox 97 08/01/18 20:00 Constitutional WD/WN, vitals as above Respiratory normal respiratory effort, lungs clear to auscultation Cardiovascular Rate/Rhythm: regular rate and regular rhythm Gastrointestinal (Abdomen) ff 2 down, nt, incision c/d/i Musculoskeletal non tender calves Neurologic grossly normal
[2018-08-02] MEDS: SIMETHICONE 80 MG CHEW PO SCH ×2 (08:35→08:47)
[2018-08-02] MEDS: OXYCODONE/ACETAMINOPHEN 5mg/325mg TAB PO PRN (08:44)
[2018-08-02] MEDS: IBUPROFEN 600 MG TAB PO PRN (08:45)
[2018-08-02] MEDS: ESCITALOPRAM OXALATE 20 MG TAB PO SCH (08:48)
[2018-08-02] MEDS: DOCUSATE SODIUM 100 MG CAP PO SCH (08:48)
[2018-08-02] MEDS: FERROUS SULFATE 325 MG TAB PO SCH (08:48)
[2018-08-02] MEDS: PRENATAL VITAMIN 1 TAB PO SCH (08:48)
--- NOTE | 2018-08-04 13:23 | Discharge Summary ---
Date of Service August 04, 2018 Patient had a section for failure to progress her course in hospital was unremarkable by postop day #3 she met discharge criteria at that time she was ablating well tolerating oral diet oral pain medication was controlling her pain she had no extremity pain minimal bleeding Discharge instructions were reviewed patient given prescriptions for pain medication and told to follow-up in the office and call sooner with any issues Admission Exam (Per Admitting) Constitutional WD/WN, vitals as above Respiratory normal respiratory effort, lungs clear to auscultation Cardiovascular RRR, no murmur, no edema Gastrointestinal (Abdomen) normal bowel sounds, soft, nontender, no hepatosplenomegaly Inspection/Auscultation: + abdominal surgical scar Discharge Data Consultations 07/29/18 14:12 Consult Anesthesiology Stat Procedures Performed Operation Date: 07/30/18 08:55 Actual Procedures p Primary section of live female child at 0930 - Jair Mckee MD, [facility] [place] Hospital Course (1) delivery delivered:
== END 2018-08-02 11:16 | disposition home or self-care (01) | DRG 788 ==
LOC: 4S1 11:10 → OPB 11:10 → 4S1 14:12 → 4S2 07-30 13:20
DX: Z37.0 Single live birth; O32.4XX0 Maternal care for high head at term, not applicable or unspecified; O99.344 Other mental disorders complicating childbirth; F32.9 Major depressive disorder, single episode, unspecified; Z3A.40 40 weeks gestation of pregnancy